=== PATIENT | female | born 1990 | race Two or more races ===

== ENCOUNTER → 2021-11-24 | Outpatient (REF) | LOC: M LABSMTC 11:23 | PROVIDERS: ATTEND Family Medicine | DX: Z11.52 Encounter for screening for COVID-19 (principal) ==

== ENCOUNTER → 2022-01-03 | Outpatient (REF) ==
[2022-01-03 14:42] LABS: RSV AMPLIFICATION NEGATIVE (NEGATIVE)
== END ==
LOC: M LABSMTC 11:25
PROVIDERS: ATTEND Family Medicine
DX: Z00.00 Encounter for general adult medical examination without abnormal findings (principal)